=== PATIENT | female | born 1925 | race African-American/Black ===

== ENCOUNTER 2016-10-21 15:22 | Emergency (ER) | payer MEDICARE ==
[2016-10-21] MEDS ORDERED: NORMAL SALINE 1000 ML 1,000 ML IV ONE (15:32)
[2016-10-21] MEDS ORDERED: ONDANSETRON HCL INJ/PF 4 MG/2 ML SDV IV ONE ×3 (15:33→20:56)
[2016-10-21] MEDS ORDERED: FENTANYL CITRATE INJ/PF 100 MCG/2 ML AMPUL IV ONE (15:33)
[2016-10-21 15:57] LABS: ABSOLUTE EOSINOPHILS # (AUTO) 0.4 10^3/uL (0.0-0.6); ABSOLUTE LYMPHOCYTES (AUTO) 2.3 10^3/uL (0.5-4.7); ABSOLUTE MONOCYTES (AUTO) 0.4 10^3/uL (0.1-1.4); ABSOLUTE NEUT (AUTO) 1.6 10^3/uL (1.7-8.2); EOSINOPHILS % (AUTO) 7.9 % (0-6); HEMATOCRIT 40.3 % (36.0-47.0); HEMOGLOBIN 13.7 g/dL (12.0-15.5); HGB HCT DIFFERENCE 0.8; LYMPHOCYTES % (AUTO) 49.1 % (13-45); MEAN CORPUSCULAR HEMOGLOBIN 29.2 pg (27.0-33.4); MEAN CORPUSCULAR VOLUME 86 fl (80-97); MONOCYTES % (AUTO) 9.3 % (3-13); RED BLOOD COUNT 4.69 10^6/uL (3.72-5.28); RED CELL DISTRIBUTION WIDTH 13.4 % (11.5-14.0); SEGMENTED NEUTROPHILS % (AUTO) 32.7 % (42-78); WHITE BLOOD COUNT 4.8 10^3/uL (4.0-10.5)
[2016-10-21 15:59] LABS: VENOUS BLOOD HCO3 24.9 mmol/L (20-32); VENOUS BLOOD PCO2 37.1 mmHg (35-63); VENOUS BLOOD PH 7.44 (7.30-7.42)
[2016-10-21 16:05] LABS: PROTHROMBIN TIME 12.8 SEC (11.4-15.4)
[2016-10-21 16:06] LABS: PARTIAL THROMBOPLASTIN TIME 23.1 SEC (23.5-35.8)
[2016-10-21 16:30] LABS: ANION GAP 11 (5-19); BLOOD UREA NITROGEN 23 mg/dL (7-20); CALCIUM 9.8 mg/dL (8.4-10.2); CARBON DIOXIDE 29 mmol/L (22-30); CHLORIDE 104 mmol/L (98-107); CREATININE RESULT 0.83 mg/dL (0.52-1.25); GLUCOSE 103 mg/dL (75-110); LIPASE 569.4 U/L (23-300); POTASSIUM 3.6 mmol/L (3.6-5.0); SODIUM 144.2 mmol/L (137-145)
[2016-10-21] MEDS ORDERED: LIDOCAINE 1% INJ-PF (10 MG/ML) 30 ML SDV INJ ONE (17:05)
[2016-10-21] MEDS ORDERED: HYDRALAZINE HCL INJ/PF 20 MG/1 ML SDV IV ONE (17:06)
[2016-10-21 18:35] LABS: APPEARANCE,URINE CLEAR; BILIRUBIN,URINE NEGATIVE (NEGATIVE); GLUCOSE, URINE NEGATIVE (NEGATIVE); KETONES,URINE NEGATIVE (NEGATIVE); LEUKOCYTE ESTERASE,URINE SMALL (NEGATIVE); NITRITE,URINE NEGATIVE (NEGATIVE); PROTEIN,URINE NEGATIVE (NEGATIVE); UROBILINOGEN,URINE NEGATIVE mg/dL (<2.0)
--- NOTE | 2016-10-21 21:41 | ER Document Report ---
ED General - General Chief Complaint: Facial Injury Stated Complaint: FALL,FACIAL AND HEAD INJURY - HPI Patient complains to provider of: fall Notes: Patient coming in for fall. Patient had chicken fall down stairs greater than 15 feet with positive loss of consciousness. Patient brought in by EMS. Patient with others laceration to the mouth bleeding the mouth however ANO 3 with complaints of neck and back pain. Patient was not on a backboard is at EMS states that the patient could not lay flat due to the pain. Patient did not have a c-collar on was immobilized with towels. GCS of 15 Past Medical History - Social History Smoking Status: Unknown if Ever Smoked Family History: Reviewed & Not Pertinent - Past Medical History Cardiac Medical History: Reports: Hx Hypertension Review of Systems - Review of Systems Constitutional: No symptoms reported EENT: Other - Bleeding from the mouth neck pain Cardiovascular: No symptoms reported Respiratory: No symptoms reported Gastrointestinal: No symptoms reported Genitourinary: No symptoms reported Female Genitourinary: No symptoms reported Musculoskeletal: No symptoms reported Skin: No symptoms reported Hematologic/Lymphatic: No symptoms reported Neurological/Psychological: No symptoms reported Physical Exam - Vital signs Vitals: Resp Pulse Ox 21 H 99 10/21/16 15:31 10/21/16 15:31 Interpretation: Normal - General General appearance: Appears well, Alert - HEENT Head: Normocephalic. No: Atraumatic - Hematoma to the forehead Eyes: Normal Conjunctiva: Normal Cornea: Normal Extraocular movements intact: Yes Eyelashes: Normal Pupils: PERRL Ears: Normal External canal: Normal Tympanic membrane: Normal Sinus: Normal Nasal: Normal Mouth/Lips: Normal - Avulsion of teeth portent patient throughout the mouth. Patient does have lip laceration of the upper lip. Pharynx: Normal Neck: Other - C-collar placed - Respiratory Respiratory status: No respiratory distress Chest status: Nontender Breath sounds: Normal Chest palpation: Normal - Cardiovascular Rhythm: Regular Heart sounds: Normal auscultation Murmur: No - Abdominal Inspection: Normal Distension: No distension Bowel sounds: Normal Tenderness: Nontender Organomegaly: No organomegaly - Back Back: Normal, Nontender - Extremities General upper extremity: Normal inspection, Nontender, Normal color, Normal ROM , Normal temperature General lower extremity: Normal inspection, Nontender, Normal color, Normal ROM , Normal temperature, Normal weight bearing. No: Carly's sign - Neurological Neuro grossly intact: Yes Cognition: Normal Orientation: AAOx4 Jaison Coma Scale Eye Opening: Spontaneous Jaison Coma Scale Verbal: Oriented Jaison Coma Scale Motor: Obeys Commands Mckenzie Coma Scale Total: 15 Speech: Normal Motor strength normal: LUE, RUE, LLE, RLE Sensory: Normal - Psychological Associated symptoms: Normal affect, Normal mood - Skin Skin Temperature: Warm Skin Moisture: Dry Skin Color: Normal Course - Re-evaluation Re-evalutation: 10/21/16 22:58 Patient underwent a trauma scan with x-rays. No acute fractures were found. Patient was monitored here in ER for some time. Patient is very little bit of nausea there is subsided with medication. Patient was dressed and ambulated without difficulty sutures were applied to the lip patient started on Keflex patient was discharged home follow-up her primary care physician. - Vital Signs Vital signs: Temp Pulse Resp BP Pulse Ox 98.4 F 18 141/80 H 98 10/21/16 21:45 10/21/16 21:01 10/21/16 21:01 10/21/16 21:01 - Laboratory Result Diagrams: 10/21/16 15:36 10/21/16 15:36 Laboratory results interpreted by me: 10/21/16 10/21/16 10/21/16 15:36 15:36 15:36 Seg Neutrophils % 32.7 L Lymphocytes % 49.1 H Eosinophils % 7.9 H Absolute Neutrophils 1.6 L APTT 23.1 L VBG pH BUN 23 H Lipase 569.4 H Ur Leukocyte Esterase 10/21/16 10/21/16 15:36 18:05 Seg Neutrophils % Lymphocytes % Eosinophils % Absolute Neutrophils APTT VBG pH 7.44 H BUN Lipase Ur Leukocyte Esterase SMALL H Procedures - Laceration/Wound Repair Face Wound length (cm): 2 Wound's Depth, Shape: Other - U-shaped Laceration pre-procedure: Sterile PPE donned, Sterile drapes applied Anesthetic type: 1% Lidocaine Volume Anesthetic (mLs): 3 Wound explored: Clean Irrigated w/ Saline (mLs): 500 Wound Repaired With: Sutures Suture Size/Type: 5:0, Vicryl Number of Sutures: 5 Critical Care Note - Critical Care Note Total time excluding time spent on procedures (mins): 35 Comments: Multiple evaluations for trauma Discharge - Discharge Clinical Impression: Abrasion, Multiple contusions Lip laceration Qualifiers: Encounter type: initial encounter Qualified Code(s): S01.511A - Laceration without foreign body of lip, initial encounter Avulsed tooth Qualifiers: Encounter type: initial encounter Qualified Code(s): S03.2XXA - Dislocation of tooth, initial encounter Condition: Good Disposition: HOME, SELF-CARE Instructions: Absorbable Suture Care ([facility]), Contusion ([facility]), Abrasions ([facility]) Additional Instructions: Take medications as prescribed. You may take Tylenol at home for pain. Follow- up with your primary care physician in one week. Return to the ER if symptoms worsen Prescriptions: Cephalexin Monohydrate [Keflex 500 mg Capsule] 500 mg PO QID #20 capsule
[2016-10-21 21:45] VITALS: BP 141/80
--- NOTE | 2016-10-21 21:50 | EKG REPORT ---
SEVERITY:- ABNORMAL ECG - SINUS RHYTHM LEFT AXIS DEVIATION PROBABLE LEFT VENTRICULAR HYPERTROPHY ANTERIOR Q WAVES, POSSIBLY DUE TO LVH VS ANT MO AGE INDETERMINATE BORDERLINE PROLONGED QT INTERVAL : Confirmed by: Salinas Lazcano 21-Oct-2016 21:49:00
== END 2016-10-21 21:55 | disposition home or self-care (01) ==
LOC: ER 15:22
PROC: 0CQ0XZZ Repair Upper Lip, External Approach (ICD-10-PCS; principal; 2016-10-21)
DX: S01.511A Laceration without foreign body of lip, initial encounter (principal); S03.2XXA Dislocation of tooth, initial encounter; W10.9XXA Fall (on) (from) unspecified stairs and steps, initial encounter; M54.2 Cervicalgia; M54.9 Dorsalgia, unspecified; I10 Essential (primary) hypertension; R11.0 Nausea
CPT/HCPCS: 93005; 96376; 99291; 96361; 96374; 96375; 36415; 83690; 85025; 85610; 85730; 80048; 81001; 82803; 71010; 72170; 73110; 73130; 70450; 70486; 71260; 72125; 74177; 93010; 12011; J3010; J0360; J3490; J2405; J7030